=== PATIENT | female | born 1955 | race Caucasian/White ===

== ENCOUNTER → 2017-04-21 | Emergency (ER) | payer OTHER ==
[~2017-04-21] VITALS: Ht 157.5 cm; Wt 78.0 kg
== END | disposition home or self-care (01) ==
LOC: ER 15:54
DX: B34.9 Viral infection, unspecified (principal)

== ENCOUNTER 2017-05-30 10:57 | Emergency (ER) | payer OTHER ==
[~2017-05-30] VITALS: Ht 157.5 cm; Wt 81.6 kg
[2017-05-30] MEDS ORDERED: METHYLPREDNISOLO4 M1 (11:07)
[2017-05-30] MEDS ORDERED: SYMBICORT 16010.2 GM (11:08)
[2017-05-30] MEDS ORDERED: CLARITIN10 MG (11:09)
[2017-05-30] MEDS ORDERED: SINGULAIR10 MG (11:09)
== END 2017-05-30 15:46 | disposition home or self-care (01) ==
LOC: ER 10:57
DX: J02.8 Acute pharyngitis due to other specified organisms (principal)

== ENCOUNTER 2018-01-13 10:21 | Emergency (ER) | payer OTHER ==
[~2018-01-13] VITALS: Ht 157.5 cm; Wt 81.6 kg
[~2018-01-13 10:21] MED LIST: CLARITIN10 MG; METHYLPREDNISOLO4 M1; SINGULAIR10 MG; SYMBICORT 16010.2 GM
== END 2018-01-13 15:52 | disposition home or self-care (01) ==
LOC: ER 10:21
DX: M54.5 Low back pain (principal)